=== PATIENT | male | born 1985 | race African-American/Black ===

== ENCOUNTER 2017-07-22 18:20 | Emergency (ER) | payer MEDICAID ==
[~2017-07-22] VITALS: Ht 177.8 cm; Wt 68.5 kg
[2017-07-22 18:24] VITALS: BP 122/66
== END 2017-07-22 22:09 | disposition left against medical advice (07) ==
LOC: ER 18:41
DX: R10.12 Left upper quadrant pain (principal); F17.200 Nicotine dependence, unspecified, uncomplicated
CPT/HCPCS: 99281

== ENCOUNTER 2018-02-04 07:36 | Emergency (ER) | payer MEDICAID ==
[~2018-02-04] VITALS: Ht 177.8 cm; Wt 68.0 kg
[2018-02-04] MEDS ORDERED: VISCOUS LIDOCAINE 2% 15 ML UDC MM STA (10:18)
[2018-02-04] MEDS ORDERED: MAGNESIUM/ALUMINUM HYDROXIDE/SIMETHICONE 30ML UDC PO ONE (10:30)
[2018-02-04 13:40] VITALS: BP 118/76
== END 2018-02-04 14:09 | disposition home or self-care (01) ==
LOC: ER 08:58
DX: K29.20 Alcoholic gastritis without bleeding (principal)
CPT/HCPCS: 99283; Z7610